=== PATIENT | male | born 1970 ===

== ENCOUNTER 2020-06-15 14:04 | Inpatient (IN) | payer MEDICAID, OTHER ==
[~2020-06-15] VITALS: Ht 165.1 cm; Wt 109.6 kg
--- NOTE | 2020-06-15 14:19 | NUR ---
PT BIB EMS FOR LEFT HIP PAIN AND LYING PRONE FOR 2 WEEKS PER PT. [employer]OMMATES WOULD BRING FOOD. PT STATES HE DEVELOPED LEFT HIP PAIN, DIDNT WANT TO GO TO THE HOSPITAL. PT DENIES INJURY TO HIP, NO FALLS OR TRAUMA. NO DEFORMITY. PT DENIES HEALTH HISTORY. DENIES CP, SOB, OR COUGH
[2020-06-15] MEDS ORDERED: KETOROLAC 30 MG/1 ML IVPush ONE (15:00)
[2020-06-15] MEDS ORDERED: SODIUM CHLORIDE FLUSH 10ML SYR IVF ONE (15:00)
[2020-06-15 15:38] LABS: BASOPHILS # (AUTO) 0.07 x10^3/uL (0-0.1); BASOPHILS % (AUTO) 1 % (0-1); EOSINOPHILS # (AUTO) 0.16 x10^3/uL (0-0.4); EOSINOPHILS % (AUTO) 1 % (1-7); HCT (SEDRATE) 44.4 % (39.2-51.8); LYMPHOCYTES # (AUTO) 1.52 x10^3/uL (1-3.4); LYMPHOCYTES % (AUTO) 13 % (22-44); MD NO; MEAN CORPUSCULAR HGB CONC 33.5 g/dL (33.2-36.2); MEAN CORPUSCULAR VOLUME 92.4 fL (81-97); MEAN PLATELET VOLUME 9.1 fL (7.4-10.4); MONOCYTES # (AUTO) 0.85 x10^3/uL (0.2-0.8); MONOCYTES % (AUTO) 7 % (2-9); NEUTROPHILS # (AUTO) 9.22 x10^3/uL (1.8-6.8); NEUTROPHILS % (AUTO) 78 % (42-75); PLATELET COUNT 315 x10^3/uL (130-400); RED BLOOD COUNT 4.79 x10^6/uL (4.38-5.82); RED CELL DISTRIBUTION WIDTH 13.1 % (9.4-14.8)
[2020-06-15 15:48] LABS: ALBUMIN 2.7 g/dL (3.4-5.0); ANION GAP 6 mmol/L (5-15); CALCIUM 8.7 mg/dL (8.5-10.1); CHLORIDE 107 mmol/L (98-107); CREATININE 0.82 mg/dL (0.7-1.3)
--- NOTE | 2020-06-15 16:00 | NUR ---
PT RESTING, BACK FROM IMAGING. CALL LIGHT IN REACH.
[2020-06-15] MEDS ORDERED: KETOROLAC 30 MG/1 ML ONE (16:02)
--- NOTE | 2020-06-15 17:00 | NUR ---
PT RESTING, WATCHING TV. POC FOR MRI. CALL LIGHT IN REACH
[2020-06-15] MEDS ORDERED: MORPHINE SULFATE 4 MG/ML, 1ML IVPush ONE (17:30)
--- NOTE | 2020-06-15 18:12 | NUR ---
PT IN MRI
[2020-06-15] MEDS ORDERED: GADOTERATE 7.5 MMOL/15 ML SYR ONE (18:41)
--- NOTE | 2020-06-15 18:50 | NUR ---
REPORT TO BOYD
--- NOTE | 2020-06-15 18:51 | NUR ---
REPORT RECEIVED FROM ROBERT ACEVEDO. PT IS CURRENTLY IN MRI.
[2020-06-15] MEDS ORDERED: MORPHINE SULFATE 4 MG/ML, 1ML ONE (19:32)
[2020-06-15] MEDS ORDERED: ENALAPRILAT 1.25 MG/ML, 1ML IVPush PRN (20:00)
[2020-06-15] MEDS ORDERED: ACETAMINOPHEN 325 MG TABLET PO PRN (20:00)
[2020-06-15] MEDS ORDERED: morphine SULFATE 10 MG/ML, 1ML IVPush PRN (20:00)
[2020-06-15] MEDS ORDERED: HEPARIN 5,000 UNITS/ML, 1ML ONE (20:04)
[2020-06-15] MEDS: HEPARIN 5,000 UNITS/ML, 1ML SQ SCH (20:06)
--- NOTE | 2020-06-15 20:39 | NUR ---
HOSPITAL BED REQ.
--- NOTE | 2020-06-15 20:40 | NUR ---
PT RESTING ON GURNEY W/ CALL LIGHT IN REACH AND SIDE RAILS UPX2. AWARE OF POC FOR ADMIT. AMAURY STANLEY.
[2020-06-15] MEDS ORDERED: KETOROLAC 30 MG/1 ML IM PRN (21:00)
--- NOTE | 2020-06-15 21:57 | NUR ---
ATTEMPT TO CALL REPORT. RN WILL CALL BACK.
[2020-06-15 23:30] VITALS: BP 139/81
[2020-06-16 00:44] VITALS: BP 139/81
[2020-06-16 02:30] VITALS: BP 134/85
[2020-06-16] MEDS: HEPARIN 5,000 UNITS/ML, 1ML SQ SCH ×3 (05:17→20:28)
[2020-06-16] MEDS: HYDROcodone/APAP 5/325 TABLET PO PRN ×2 (05:17→13:12)
[2020-06-16 05:57] LABS: BASOPHILS # (AUTO) 0.05 x10^3/uL (0-0.1); BASOPHILS % (AUTO) 1 % (0-1); EOSINOPHILS # (AUTO) 0.26 x10^3/uL (0-0.4); EOSINOPHILS % (AUTO) 3 % (1-7); LYMPHOCYTES # (AUTO) 1.57 x10^3/uL (1-3.4); LYMPHOCYTES % (AUTO) 17 % (22-44); MD NO; MEAN CORPUSCULAR HEMOGLOBIN 30.7 pg (27.5-34.5); MEAN CORPUSCULAR HGB CONC 33.2 g/dL (33.2-36.2); MEAN CORPUSCULAR VOLUME 92.7 fL (81-97); MEAN PLATELET VOLUME 9.5 fL (7.4-10.4); MONOCYTES # (AUTO) 0.54 x10^3/uL (0.2-0.8); MONOCYTES % (AUTO) 6 % (2-9); NEUTROPHILS # (AUTO) 6.95 x10^3/uL (1.8-6.8); NEUTROPHILS % (AUTO) 74 % (42-75); PLATELET COUNT 297 x10^3/uL (130-400); RED BLOOD COUNT 4.48 x10^6/uL (4.38-5.82); RED CELL DISTRIBUTION WIDTH 13.1 % (9.4-14.8)
[2020-06-16 06:00] LABS: ANION GAP 5 mmol/L (5-15); CHLORIDE 104 mmol/L (98-107)
[2020-06-16] MEDS ORDERED: OMEPRAZOLE 20 MG CAPSULE.DR PO SCH (06:00)
[2020-06-16 06:02] LABS: CALCIUM 8.5 mg/dL (8.5-10.1)
[2020-06-16] MEDS: POTASSIUM CHLORIDE 20 MEQ TAB.ER.PRT PO SCH (09:52)
[2020-06-16] MEDS: SENNA/DOCUSATE TABLET PO SCH (09:52)
[2020-06-16 09:54] VITALS: BP 143/78
[2020-06-16] MEDS ORDERED: ONDANSETRON 2MG/ML, 2ML IVPush PRN (12:00)
[2020-06-16 12:28] VITALS: BP 148/86
[2020-06-16] MEDS: GABAPENTIN 300 MG CAPSULE PO SCH ×3 (13:12→20:28)
[2020-06-16] MEDS: IBUPROFEN 600 MG TABLET PO SCH ×2 (16:15→20:28)
[2020-06-16] MEDS: OMEPRAZOLE 20 MG CAPSULE.DR PO SCH (16:15)
[2020-06-16 19:56] VITALS: BP 119/81
[2020-06-16] MEDS: LIDODERM 5% PATCH TD SCH (20:29)
[2020-06-17 01:55] VITALS: BP 111/74
[2020-06-17] MEDS: HEPARIN 5,000 UNITS/ML, 1ML SQ SCH ×3 (03:53→20:23)
[2020-06-17] MEDS: OMEPRAZOLE 20 MG CAPSULE.DR PO SCH ×2 (05:44→16:33)
[2020-06-17] MEDS: IBUPROFEN 600 MG TABLET PO SCH ×3 (05:44→16:33)
[2020-06-17 06:58] VITALS: BP 107/68
[2020-06-17] MEDS: SENNA/DOCUSATE TABLET PO SCH (09:20)
[2020-06-17] MEDS: POTASSIUM CHLORIDE 20 MEQ TAB.ER.PRT PO SCH (09:20)
[2020-06-17] MEDS: GABAPENTIN 300 MG CAPSULE PO SCH ×2 (09:20→16:33)
[2020-06-17] MEDS: LIDODERM REMOVE PATCH NOTE XX SCH (09:22)
[2020-06-18] MEDS: GABAPENTIN 300 MG CAPSULE PO SCH ×4 (00:05→20:43)
[2020-06-18] MEDS: LIDODERM 5% PATCH TD SCH ×2 (00:06→20:48)
[2020-06-18] MEDS: IBUPROFEN 600 MG TABLET PO SCH ×5 (00:06→20:43)
[2020-06-18 00:18] VITALS: BP 158/81
[2020-06-18] MEDS: OMEPRAZOLE 20 MG CAPSULE.DR PO SCH ×2 (05:40→16:07)
[2020-06-18] MEDS: HEPARIN 5,000 UNITS/ML, 1ML SQ SCH ×3 (05:41→21:58)
[2020-06-18 07:10] VITALS: BP 169/97
[2020-06-18] MEDS: POTASSIUM CHLORIDE 20 MEQ TAB.ER.PRT PO SCH (08:12)
[2020-06-18] MEDS: SENNA/DOCUSATE TABLET PO SCH (08:12)
[2020-06-18] MEDS: LIDODERM REMOVE PATCH NOTE XX SCH (08:14)
[2020-06-18] MEDS: LISINOPRIL 20 MG TABLET PO SCH ×2 (11:00→20:43)
[2020-06-18 13:58] VITALS: BP 118/81
[2020-06-18 19:27] VITALS: BP 145/78
[2020-06-19 01:29] VITALS: BP 151/75
[2020-06-19] MEDS: IBUPROFEN 600 MG TABLET PO SCH ×4 (05:49→20:40)
[2020-06-19] MEDS: HEPARIN 5,000 UNITS/ML, 1ML SQ SCH ×3 (05:49→20:41)
[2020-06-19] MEDS: OMEPRAZOLE 20 MG CAPSULE.DR PO SCH ×2 (05:49→15:52)
[2020-06-19 07:32] VITALS: BP 149/81
[2020-06-19] MEDS: SENNA/DOCUSATE TABLET PO SCH (08:48)
[2020-06-19] MEDS: POTASSIUM CHLORIDE 20 MEQ TAB.ER.PRT PO SCH (08:48)
[2020-06-19] MEDS: LISINOPRIL 20 MG TABLET PO SCH ×2 (08:48→20:40)
[2020-06-19] MEDS: GABAPENTIN 300 MG CAPSULE PO SCH ×3 (08:48→20:40)
[2020-06-19] MEDS: LIDODERM REMOVE PATCH NOTE XX SCH (08:49)
[2020-06-19] MEDS: AMLODIPINE 5 MG TABLET PO SCH (09:44)
[2020-06-19 14:50] VITALS: BP 113/73
[2020-06-19 19:06] VITALS: BP 117/73
[2020-06-19] MEDS: LIDODERM 5% PATCH TD SCH (20:57)
[2020-06-20 01:43] VITALS: BP 123/83
[2020-06-20] MEDS: OMEPRAZOLE 20 MG CAPSULE.DR PO SCH ×2 (06:14→15:53)
[2020-06-20] MEDS: IBUPROFEN 600 MG TABLET PO SCH ×4 (06:14→21:26)
[2020-06-20] MEDS: HEPARIN 5,000 UNITS/ML, 1ML SQ SCH ×3 (06:14→21:45)
[2020-06-20 07:26] VITALS: BP 128/76
[2020-06-20] MEDS: POTASSIUM CHLORIDE 20 MEQ TAB.ER.PRT PO SCH (07:50)
[2020-06-20] MEDS: SENNA/DOCUSATE TABLET PO SCH (07:50)
[2020-06-20] MEDS: GABAPENTIN 300 MG CAPSULE PO SCH ×3 (07:50→21:27)
[2020-06-20] MEDS: AMLODIPINE 5 MG TABLET PO SCH (07:50)
[2020-06-20] MEDS: LIDODERM REMOVE PATCH NOTE XX SCH (07:51)
[2020-06-20] MEDS: LISINOPRIL 20 MG TABLET PO SCH ×2 (07:51→21:27)
[2020-06-20 12:08] VITALS: BP 147/86
[2020-06-20 14:58] VITALS: BP 156/85
[2020-06-20 16:23] LABS: ANA SCREEN NEGATIVE (Negative)
[2020-06-20 19:21] VITALS: BP 127/80
[2020-06-20] MEDS: LIDODERM 5% PATCH TD SCH (21:27)
[2020-06-20] MEDS ORDERED: IBUPROFEN 600 MG TABLET PO PRN (22:30)
[2020-06-21 01:08] VITALS: BP 134/93
[2020-06-21 05:14] LABS: BASOPHILS # (AUTO) 0.04 x10^3/uL (0-0.1); BASOPHILS % (AUTO) 0 % (0-1); EOSINOPHILS # (AUTO) 0.25 x10^3/uL (0-0.4); EOSINOPHILS % (AUTO) 2 % (1-7); LYMPHOCYTES # (AUTO) 2.53 x10^3/uL (1-3.4); LYMPHOCYTES % (AUTO) 24 % (22-44); MD NO; MEAN CORPUSCULAR HEMOGLOBIN 30.7 pg (27.5-34.5); MEAN CORPUSCULAR HGB CONC 33.3 g/dL (33.2-36.2); MEAN CORPUSCULAR VOLUME 92.4 fL (81-97); MEAN PLATELET VOLUME 9.6 fL (7.4-10.4); MONOCYTES % (AUTO) 8 % (2-9); NEUTROPHILS # (AUTO) 6.85 x10^3/uL (1.8-6.8); NEUTROPHILS % (AUTO) 65 % (42-75); PLATELET COUNT 293 x10^3/uL (130-400); RED BLOOD COUNT 4.32 x10^6/uL (4.38-5.82); RED CELL DISTRIBUTION WIDTH 13.3 % (9.4-14.8)
[2020-06-21 05:19] LABS: CHLORIDE 108 mmol/L (98-107)
[2020-06-21 05:25] LABS: ALANINE AMINOTRANSFERASE 21 U/L (12-78); ALBUMIN 2.7 g/dL (3.4-5.0); ALKALINE PHOSPHATASE 66 U/L (45-117); ANION GAP 4 mmol/L (5-15); BILIRUBIN,TOTAL 0.3 mg/dL (0.2-1.0); CALCIUM 8.6 mg/dL (8.5-10.1); CREATININE 0.71 mg/dL (0.7-1.3); TOTAL PROTEIN 7.9 g/dL (6.4-8.2)
[2020-06-21] MEDS: HEPARIN 5,000 UNITS/ML, 1ML SQ SCH ×3 (05:48→20:46)
[2020-06-21] MEDS: OMEPRAZOLE 20 MG CAPSULE.DR PO SCH ×2 (05:48→17:53)
[2020-06-21 07:22] VITALS: BP 153/87
[2020-06-21] MEDS: POTASSIUM CHLORIDE 20 MEQ TAB.ER.PRT PO SCH (08:36)
[2020-06-21] MEDS: AMLODIPINE 5 MG TABLET PO SCH (08:36)
[2020-06-21] MEDS: LISINOPRIL 20 MG TABLET PO SCH ×2 (08:36→20:47)
[2020-06-21] MEDS: SENNA/DOCUSATE TABLET PO SCH (08:36)
[2020-06-21] MEDS: GABAPENTIN 300 MG CAPSULE PO SCH ×3 (08:37→20:47)
[2020-06-21] MEDS: LIDODERM REMOVE PATCH NOTE XX SCH (08:43)
[2020-06-21] MEDS: HYDROcodone/APAP 5/325 TABLET PO PRN (13:14)
[2020-06-21 15:14] VITALS: BP 124/69
[2020-06-21] MEDS: LIDODERM 5% PATCH TD SCH (20:47)
[2020-06-21 21:43] VITALS: BP 130/76
[2020-06-22 02:29] VITALS: BP 156/85
[2020-06-22] MEDS: HEPARIN 5,000 UNITS/ML, 1ML SQ SCH ×3 (05:40→21:12)
[2020-06-22] MEDS: HYDROcodone/APAP 5/325 TABLET PO PRN ×2 (05:40→13:39)
[2020-06-22] MEDS: OMEPRAZOLE 20 MG CAPSULE.DR PO SCH ×2 (05:40→15:52)
[2020-06-22 08:32] VITALS: BP 138/81
[2020-06-22] MEDS: GABAPENTIN 300 MG CAPSULE PO SCH ×3 (08:55→21:12)
[2020-06-22] MEDS: POTASSIUM CHLORIDE 20 MEQ TAB.ER.PRT PO SCH (08:55)
[2020-06-22] MEDS: AMLODIPINE 5 MG TABLET PO SCH (08:56)
[2020-06-22] MEDS: LISINOPRIL 20 MG TABLET PO SCH ×2 (08:56→21:12)
[2020-06-22] MEDS: SENNA/DOCUSATE TABLET PO SCH (08:57)
[2020-06-22] MEDS: LIDODERM REMOVE PATCH NOTE XX SCH (08:59)
[2020-06-22 15:08] VITALS: BP 125/68
[2020-06-22 19:02] VITALS: BP 120/70
[2020-06-22] MEDS: LIDODERM 5% PATCH TD SCH (21:12)
[2020-06-23 01:11] VITALS: BP 132/66
[2020-06-23] MEDS: OMEPRAZOLE 20 MG CAPSULE.DR PO SCH ×2 (05:11→17:04)
[2020-06-23] MEDS: HEPARIN 5,000 UNITS/ML, 1ML SQ SCH ×2 (05:11→14:00)
[2020-06-23 08:11] VITALS: BP 149/83
[2020-06-23] MEDS: SENNA/DOCUSATE TABLET PO SCH (08:39)
[2020-06-23] MEDS: AMLODIPINE 5 MG TABLET PO SCH (08:39)
[2020-06-23] MEDS: POTASSIUM CHLORIDE 20 MEQ TAB.ER.PRT PO SCH (08:39)
[2020-06-23] MEDS: GABAPENTIN 300 MG CAPSULE PO SCH ×2 (08:39→17:04)
[2020-06-23] MEDS: LISINOPRIL 20 MG TABLET PO SCH (08:39)
[2020-06-23] MEDS: LIDODERM REMOVE PATCH NOTE XX SCH (08:42)
[2020-06-23 15:03] VITALS: BP 157/76
[2020-06-23] MEDS ORDERED: OMEP-110 PO (17:20)
[2020-06-23] MEDS ORDERED: LISI-170 PO (17:20)
[2020-06-23] MEDS ORDERED: AMLO-150 PO (17:20)
[2020-06-23] MEDS ORDERED: IBUP-1222 PO (17:20)
[2020-06-23] MEDS ORDERED: LIDO700A20 TD (17:20)
[2020-06-23] MEDS ORDERED: PRED20TA PO (17:20)
[2020-06-23] MEDS ORDERED: GABA300C PO (17:20)
== END 2020-06-23 22:09 | disposition home or self-care (01) | DRG 552 ==
LOC: ED 16:21 → EDIP 19:34 → 4NE 23:00 → 3N 06-20 11:46
PROVIDERS: ADMIT Family Medicine; ATTEND Internal Medicine
DX: M46.1 Sacroiliitis, not elsewhere classified (principal); R65.10 Systemic inflammatory response syndrome (SIRS) of non-infectious origin without acute organ dysfunction; Z68.41 Body mass index [BMI] 40.0-44.9, adult; E11.9 Type 2 diabetes mellitus without complications; E66.01 Morbid (severe) obesity due to excess calories; E87.6 Hypokalemia; I10 Essential (primary) hypertension; M53.3 Sacrococcygeal disorders, not elsewhere classified; Z71.3 Dietary counseling and surveillance
CPT/HCPCS: 36415; 72158; 72192; 80048; 80053; 82040; 83036; 85025; 85651; 86038; 86140; 87040; 93970; G0378; J1644; J1885; J2405; A9575; J2270; J7512